=== PATIENT | female | born 1995 | race Two or more races ===

== ENCOUNTER 2021-09-11 19:38 | Emergency (ER) | payer MEDICAID, OTHER ==
[~2021-09-11] VITALS: Ht 154.9 cm; Wt 67.1 kg
--- NOTE | 2021-09-11 19:51 | NUR ---
TO ER BED 2. BIBRA 839 FOR C/O H/A, NECK, R LOWER BACK, R SHOULDER PAIN S/P REAR ENEDED. 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 AWAITING MD ALVAREZ
--- NOTE | 2021-09-11 20:19 | NUR ---
PT TAKEN TO CT SCAN
--- NOTE | 2021-09-11 20:49 | NUR ---
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
[2021-09-11] MEDS ORDERED: ONDANSETRON HCL/PF 4 MG/2 ML VIAL ONE (20:52)
[2021-09-11] MEDS ORDERED: ONDANSETRON HCL/PF 4 MG/2 ML VIAL IV ONE ×2 (21:00→22:00)
[2021-09-11] MEDS ORDERED: KETOROLAC TROMETHAMINE INJ 30 MG/ML VIAL ONE (21:22)
[2021-09-11] MEDS ORDERED: KETOROLAC TROMETHAMINE INJ 30 MG/ML VIAL IV ONE (21:30)
--- NOTE | 2021-09-11 21:48 | NUR ---
IV removed. Catheter intact and site benign. Pressure and 4x4 applied to site. No bleeding noted.Patient discharged to home in stable condition. Written and verbal after care instructions given. Patient verbalizes understanding of instruction.
[2021-09-11 22:00] VITALS: BP 121/77
== END 2021-09-11 22:01 | disposition home or self-care (01) ==
LOC: ER 19:40
DX: S13.4XXA Sprain of ligaments of cervical spine, initial encounter (principal); S33.5XXA Sprain of ligaments of lumbar spine, initial encounter; S40.011A Contusion of right shoulder, initial encounter; S70.01XA Contusion of right hip, initial encounter; S80.01XA Contusion of right knee, initial encounter; J45.909 Unspecified asthma, uncomplicated; V49.69XA Unspecified car occupant injured in collision with other motor vehicles in traffic accident, initial encounter; Y93.89 Activity, other specified; Y92.413 State road as the place of occurrence of the external cause; Y99.8 Other external cause status
CPT/HCPCS: 72125; 72131; 72170; 73030; 73564; 96374; 96375; 99284; J1885; J2405